=== PATIENT | male | born 1970 | race Caucasian/White ===

== ENCOUNTER 2022-11-14 18:56 | Emergency (ER) | payer MEDICAID ==
[~2022-11-14] VITALS: Ht 180.3 cm; Wt 79.5 kg
[2022-11-14 19:09] VITALS: BP 123/93
== END 2022-11-14 21:31 ==
LOC: ER 18:58
DX: Z04.1 Encounter for examination and observation following transport accident (principal); F17.200 Nicotine dependence, unspecified, uncomplicated; F12.90 Cannabis use, unspecified, uncomplicated; Z72.89 Other problems related to lifestyle; Z88.8 Allergy status to other drugs, medicaments and biological substances; V87.7XXA Person injured in collision between other specified motor vehicles (traffic), initial encounter; Y93.89 Activity, other specified; Y92.89 Other specified places as the place of occurrence of the external cause; Y99.8 Other external cause status
CPT/HCPCS: 99283

== ENCOUNTER 2023-01-01 08:34 | Emergency (ER) | payer BC, MEDICAID ==
[~2023-01-01] VITALS: Ht 180.3 cm; Wt 85.0 kg
[2023-01-01 08:49] VITALS: BP 131/91; PULSE 76; RESP 18; TEMP 97.7; O2SAT 97
[2023-01-01] MEDS ORDERED: DOXY100C43 PO (09:48)
[2023-01-01] MEDS ORDERED: IBUP-1986 PO (09:48)
[2023-01-01] MEDS ORDERED: CIPR10DR RIGHT EAR (09:48)
== END 2023-01-01 10:19 | disposition home or self-care (01) ==
LOC: ER 08:34
DX: H66.91 Otitis media, unspecified, right ear (principal); H72.91 Unspecified perforation of tympanic membrane, right ear; F12.90 Cannabis use, unspecified, uncomplicated; Z88.0 Allergy status to penicillin; Z88.8 Allergy status to other drugs, medicaments and biological substances
CPT/HCPCS: 99283